=== PATIENT | female | born 1965 | race American Indian/Alaskan Native ===

== ENCOUNTER 2018-11-24 20:11 | Emergency (ER) | payer OTHER ==
[2018-11-24 21:29] VITALS: BP 188/97
--- NOTE | 2018-11-24 21:44 | Emergency Department Report ---
Blank Doc - Documentation Documentation: This is a 53-year-old female that presents with right sided ear pain with radi ation to head causes headache. Denies worst headache or thunderclap headache. This initial assessment/diagnostic orders/clinical plan/treatment(s) is/are subject to change based on patient's health status, clinical progression and re- assessment by fellow clinical providers in the ED. Further treatment and workup at subsequent clinical providers discretion. Patient/guardians urged not to elope from the ED as their condition may be serious if not clinically assessed and managed. Initial orders include: 1- Patient sent to [facility] for further evaluation and treatment
--- NOTE | 2018-11-25 03:32 | Emergency Department Report ---
- General Chief Complaint: Headache Stated Complaint: HEADACHE/EARACHE/BODYACHE Time Seen by Provider: 11/24/18 21:42 Source: patient Mode of arrival: Ambulatory Limitations: No Limitations - History of Present Illness Initial Comments: 53-year-old [place] female to emergency Department complaining of a a a couple day history of cough, congestion, nasal pressure, ringing in the ear is sinus pressure and mild coryza that has been nonprogression since the onset. She reports no fever, no vomiting, no diarrhea, no hemoptysis, no hematemesis, no hematochezia does have occasional wheezing. MD Complaint: rhinorrhea, nasal congestion -: Gradual Severity: mild Severity scale (0 -10): 0 Quality: dull Consistency: constant Improves With: nothing Worsens With: nothing Context: sick contacts Associated Symptoms: rhinorrhea, nasal congestion, cough. denies: chills, myalgias, diaphoresis, headache, stiff neck, chest pain, shortness of breath, abdominal pain, vomiting, diarrhea, right sweats, weight loss, epistaxis - Related Data Previous Rx's Medication Instructions Recorded Last Taken Type ALBUTEROL Inhaler (OR & NICU) 2 puff IH QID PRN #1 inhalation 11/25/18 Unknown Rx [ProAir HFA Inhaler] guaiFENesin/CODEINE [Robitussin AC] 5 ml PO Q6H PRN #120 ml 11/25/18 Unknown Rx predniSONE [Deltasone] 20 mg PO QDAY #5 tab 11/25/18 Unknown Rx Allergies Allergy/AdvReac Type Severity Reaction Status Date / Time pollen extracts Allergy Unknown Verified 11/24/18 20:15 ED Review of Systems ROS: Stated complaint: HEADACHE/EARACHE/BODYACHE Other details as noted in HPI Constitutional: denies: chills, fever Eyes: denies: eye pain, eye discharge, vision change ENT: denies: ear pain, throat pain Respiratory: denies: cough, shortness of breath, wheezing Cardiovascular: denies: chest pain, palpitations Endocrine: no symptoms reported Gastrointestinal: denies: abdominal pain, nausea, diarrhea Genitourinary: denies: urgency, dysuria, discharge Musculoskeletal: denies: back pain, joint swelling, arthralgia Skin: denies: rash, lesions Neurological: denies: headache, weakness, paresthesias Psychiatric: denies: anxiety, depression Hematological/Lymphatic: denies: easy bleeding, easy bruising ED Past Medical Hx - Past Medical History Previous Medical History?: No - Surgical History Past Surgical History?: No - Social History Smoking Status: Never Smoker Substance Use Type: Alcohol - Medications Home Medications: Home Medications Medication Instructions Recorded Confirmed Last Taken Type ALBUTEROL Inhaler (OR & NICU) 2 puff IH QID PRN #1 inhalation 11/25/18 Unknown Rx [ProAir HFA Inhaler] guaiFENesin/CODEINE [Robitussin AC] 5 ml PO Q6H PRN #120 ml 11/25/18 Unknown Rx predniSONE [Deltasone] 20 mg PO QDAY #5 tab 11/25/18 Unknown Rx ED Physical Exam - General Limitations: No Limitations General appearance: alert, in no apparent distress - Head Head exam: Present: atraumatic, normocephalic - Eye Eye exam: Present: normal appearance - ENT ENT exam: Present: mucous membranes moist, other (nasal congestion bilaterally. Nose with some injected. Nasal mucosa injected posterior pharynx. A small effusion on the right tympanic membrane, but no redness no discharge.) - Neck Neck exam: Present: normal inspection, full ROM. Absent: tenderness, meningismus, lymphadenopathy - Respiratory Respiratory exam: Present: normal lung sounds bilaterally. Absent: respiratory distress, wheezes, rales, rhonchi, chest wall tenderness, accessory muscle use - Cardiovascular Cardiovascular Exam: Present: regular rate, normal rhythm. Absent: systolic murmur, diastolic murmur, rubs, gallop - GI/Abdominal GI/Abdominal exam: Present: soft, normal bowel sounds - Extremities Exam Extremities exam: Present: normal inspection - Back Exam Back exam: Present: normal inspection - Neurological Exam Neurological exam: Present: alert, oriented X3 - Psychiatric Psychiatric exam: Present: normal affect, normal mood - Skin Skin exam: Present: warm, dry, intact, normal color. Absent: rash ED Course Vital Signs 11/24/18 11/24/18 21:26 21:42 Temperature 98.7 F 98.7 F Pulse Rate 79 81 Respiratory 18 18 Rate Blood Pressure 188/97 188/97 O2 Sat by Pulse 100 100 Oximetry Critical care attestation.: If time is entered above; I have spent that time in minutes in the direct care of this critically ill patient, excluding procedure time. ED Disposition Clinical Impression: Congestion of nasal sinus, URI (upper respiratory infection), Cough Disposition: DC-01 TO HOME OR SELFCARE Is pt being admited?: No Does the pt Need Aspirin: No Condition: Stable Instructions: Upper Respiratory Infection (ED), Cold Symptoms (ED) Prescriptions: predniSONE [Deltasone] 20 mg PO QDAY #5 tab ALBUTEROL Inhaler (OR & NICU) [ProAir HFA Inhaler] 2 puff IH QID PRN #1 inhalation PRN Reason: Shortness Of Breath guaiFENesin/CODEINE [Robitussin AC] 5 ml PO Q6H PRN #120 ml PRN Reason: Cough [facility] [Primary Care Provider] - 3-5 Days
== END 2018-11-25 03:37 | disposition home or self-care (01) ==
LOC: ED 20:11
DX: J06.9 Acute upper respiratory infection, unspecified (principal); Z91.048 Other nonmedicinal substance allergy status
CPT/HCPCS: 99282

== ENCOUNTER 2019-07-20 13:58 | Emergency (ER) | payer SELFPAY ==
[2019-07-20 14:37] VITALS: BP 170/85
--- NOTE | 2019-07-20 14:39 | Event Note ---
ED Screening Note ED Screening Note: cough that began two days mucus production +congestion taking mucinex with some relief states that she had a fever two days ago +sick contacts PMHx thyroid goiter, HTN no allergies to meds non smoker LNMP: 07/16/19 This initial assessment/diagnostic orders/clinical plan/treatment(s) is/are s ubject to change based on patients health status, clinical progression and re- assessment by fellow clinical providers in the ED. Further treatment and workup at subsequent clinical providers discretion. Patient/guardian urged not to elope from the ED as their condition may be serious if not clinically assessed and managed. Initial orders include: CXR
--- NOTE | 2019-07-20 15:30 | XRay Report ---
CHEST 2 VIEWS INDICATION: cough. COMPARISON: None. FINDINGS: Support devices: None. Heart: Within normal limits. Pulmonary vasculature: Normal. Lungs/pleura: No acute air space or interstitial disease. No pneumothorax. Additional findings: None. IMPRESSION: Normal chest. Signer Name: Tejinder Snyder MD Signed: 07/20/2019 3:26 PM Workstation Name: [id number]
--- NOTE | 2019-07-20 15:44 | Emergency Department Report ---
- General Chief Complaint: Upper Respiratory Infection Stated Complaint: CHEST CONGESTED/COUGH Time Seen by Provider: 07/20/19 14:36 Source: patient Mode of arrival: Ambulatory Limitations: No Limitations - History of Present Illness Initial Comments: Patient is 53 years old female with no significant past medical history. Patient presented to the ER complaining of cough, productive was greenish sputum for the last 5 days. Patient denied any fever or chills. No nausea or vomiting. Patient also denied any chest pain or shortness of breath. MD Complaint: cough -: days(s) (5) Severity: moderate - Related Data Previous Rx's Medication Instructions Recorded Last Taken Type ALBUTEROL Inhaler (OR & NICU) 2 puff IH QID PRN #1 inhalation 11/25/18 Unknown Rx [ProAir HFA Inhaler] guaiFENesin/CODEINE [Robitussin AC] 5 ml PO Q6H PRN #120 ml 11/25/18 Unknown Rx predniSONE [Deltasone] 20 mg PO QDAY #5 tab 11/25/18 Unknown Rx Allergies Allergy/AdvReac Type Severity Reaction Status Date / Time pollen extracts Allergy Unknown Verified 07/20/19 14:39 ED Review of Systems ROS: Stated complaint: CHEST CONGESTED/COUGH Other details as noted in HPI Comment: All other systems reviewed and negative Constitutional: denies: chills, fever ENT: throat pain Respiratory: cough. denies: shortness of breath, SOB with exertion, wheezing Cardiovascular: denies: chest pain, palpitations Gastrointestinal: denies: abdominal pain, nausea, vomiting Musculoskeletal: denies: back pain Neurological: denies: headache, weakness, numbness, paresthesias, confusion, abnormal gait ED Past Medical Hx - Past Medical History Previous Medical History?: No - Surgical History Past Surgical History?: No - Social History Smoking Status: Never Smoker Substance Use Type: Alcohol - Medications Home Medications: Home Medications Medication Instructions Recorded Confirmed Last Taken Type ALBUTEROL Inhaler (OR & NICU) 2 puff IH QID PRN #1 inhalation 11/25/18 Unknown Rx [ProAir HFA Inhaler] guaiFENesin/CODEINE [Robitussin AC] 5 ml PO Q6H PRN #120 ml 11/25/18 Unknown Rx predniSONE [Deltasone] 20 mg PO QDAY #5 tab 11/25/18 Unknown Rx ED Physical Exam - General Limitations: No Limitations General appearance: alert, in no apparent distress - Head Head exam: Present: atraumatic, normocephalic, normal inspection - Eye Eye exam: Present: normal appearance - ENT ENT exam: Present: normal exam, normal orophraynx, mucous membranes moist - Neck Neck exam: Present: normal inspection, full ROM. Absent: tenderness, meningismus, lymphadenopathy, thyromegaly - Respiratory Respiratory exam: Present: normal lung sounds bilaterally - Cardiovascular Cardiovascular Exam: Present: regular rate, normal rhythm, normal heart sounds - GI/Abdominal GI/Abdominal exam: Present: soft, normal bowel sounds. Absent: distended, tenderness, guarding, rebound, rigid, organomegaly, mass, bruit, pulsatile mass, hernia - Extremities Exam Extremities exam: Present: normal inspection, full ROM, normal capillary refill. Absent: pedal edema, calf tenderness - Back Exam Back exam: Present: normal inspection, full ROM. Absent: CVA tenderness (R), CVA tenderness (L) - Neurological Exam Neurological exam: Present: alert, oriented X3, CN II-XII intact - Psychiatric Psychiatric exam: Present: normal mood - Skin Skin exam: Present: warm, intact, normal color ED Course Vital Signs 07/20/19 07/20/19 14:03 14:37 Temperature 97.8 F Pulse Rate 92 H Respiratory 18 Rate Blood Pressure 170/85 O2 Sat by Pulse 98 Oximetry ED Medical Decision Making - Radiology Data Radiology results: image reviewed interpreted by me: Chest x-ray is unremarkable. Critical care attestation.: If time is entered above; I have spent that time in minutes in the direct care of this critically ill patient, excluding procedure time. ED Disposition Clinical Impression: Acute bronchitis Disposition: DC-01 TO HOME OR SELFCARE Is pt being admited?: No Condition: Stable Instructions: Acute Bronchitis (ED) Referrals: [facility] [Provider Group] - 3-5 Days Forms: Work/School Release Form(ED)
== END 2019-07-20 15:50 | disposition home or self-care (01) ==
LOC: ED 13:58
DX: J40 Bronchitis, not specified as acute or chronic (principal); Z91.048 Other nonmedicinal substance allergy status
CPT/HCPCS: 71046

== ENCOUNTER 2019-10-01 14:32 | Observation (INO) | payer SELFPAY ==
--- NOTE | 2019-10-01 16:29 | Emergency Department Report ---
Chief Complaint: Vaginal Bleeding Stated Complaint: BLEEDING,CRAMPING - HPI History of Present Illness: 53 yo AA F with abnormal vaginal bleeding. Finished last menstrual cycle last Saturday. She had some heavy bleeding with clots on Saturday. Mild spotting for the past two days, until today. Today the patient has had heavy bleeding with large clots. Pelvic cramping. Mild lightheadedness. No other pmhx. No OBGYN. - Exam Vital Signs: Vital Signs 10/01/19 14:38 Temperature 99.1 F Pulse Rate 98 H Respiratory 18 Rate Blood Pressure 167/85 O2 Sat by Pulse 100 Oximetry Physical Exam: Ambulatory into triage. Awake alert and oriented. No acute distress. MSE screening note: Focused history and physical exam performed. Due to findings the following was ordered: CBC, BMP, Preg, PT/INR, U/A To fast track Patient discussed with doctor:: DAIN NAVA ED Disposition for MSE Condition: Stable
[2019-10-01 16:55] LABS: INR 0.97 (0.87-1.13)
[2019-10-01 16:56] LABS: Partial Thromboplastin Time 25.9 Sec. (24.2-36.6)
[2019-10-01 16:57] LABS: Hematocrit 23.2 % (30.3-42.9); Hemoglobin 6.8 gm/dl (10.1-14.3); Mean Corpuscular HGB Conc 29 % (30-34); Platelet Count 391 K/mm3 (140-440); Red Blood Count 3.42 M/mm3 (3.65-5.03)
[2019-10-01 17:01] LABS: BUN/Creatinine Ratio 12; Blood Urea Nitrogen 7 mg/dL (7-17); Calcium 8.9 mg/dL (8.4-10.2); Hemolysis Index 3
[2019-10-01 17:02] LABS: Mean Corpuscular Volume 68 fl (79-97); Red Cell Distribution Width 21.4 % (13.2-15.2)
[2019-10-01] MEDS ORDERED: SODIUM CHLORIDE 0.9% 1000 ML 1,000 ML IV ONE (17:19)
[2019-10-01 18:10] LABS: Bacteria,Urine 1+ /HPF (Negative); Bilirubin,Urine NEG (Negative); Blood,Urine LG (Negative); Color,Urine Straw (Yellow); Mucus,Urine FEW /HPF; Protein,Urine <15 mg/dL mg/dL (Negative); Urobilinogen,Urine < 2.0 mg/dL (<2.0)
--- NOTE | 2019-10-01 18:38 | Emergency Department Report ---
ED Female HPI - General Chief complaint: Vaginal Bleeding Stated complaint: BLEEDING,CRAMPING Time Seen by Provider: 10/01/19 16:46 Source: patient Mode of arrival: Ambulatory Limitations: No Limitations - History of Present Illness Initial comments: This is a 53-year-old female nontoxic, well nourished in appearance, no acute signs of distress presents to the ED with c/o of vaginal bleeding, dizziness, and pelvic pain x2 days. Patient stated she goes about 3 pads an hour. Patient denies any vaginal discharge or foul odor. Patient denies any nausea, vomiting, chest pain, shortness of breathe, fever, chills, headache, stiff neck, numbness, tingling. Patient denies any urinary symptoms. Patient denies any allergies or significant PMH. MD Complaint: vaginal bleeding, pelvic pain -: days(s) (2) Severity: mild Severity scale (0 -10): 3 Quality: cramping Consistency: constant Improves with: none Worsens with: none Are you Now?: No Associated Symptoms: vaginal bleeding. denies: vaginal discharge, abdominal pain, nausea/vomiting, fever/chills, headaches, loss of appetite, dysuria, he maturia, rash, shortness of breath, syncope, weakness - Related Data Sexually active: No Previous Rx's Medication Instructions Recorded Last Taken Type Albuterol INH(or & Nicu Only) 2 puff IH QID PRN #1 inhalation 11/25/18 Unknown Rx [ProAir HFA Inhaler] guaiFENesin/CODEINE [Robitussin AC] 5 ml PO Q6H PRN #120 ml 11/25/18 Unknown Rx predniSONE [Deltasone] 20 mg PO QDAY #5 tab 11/25/18 Unknown Rx Amoxicillin [Amoxicillin TAB] 875 mg PO BID #14 tablet 07/20/19 Unknown Rx guaiFENesin/CODEINE [Robitussin AC] 10 ml PO TID PRN #100 ml 07/20/19 Unknown Rx Allergies Allergy/AdvReac Type Severity Reaction Status Date / Time pollen extracts Allergy Unknown Verified 10/01/19 16:26 ED Review of Systems ROS: Stated complaint: BLEEDING,CRAMPING Other details as noted in HPI Constitutional: denies: chills, fever Eyes: denies: eye pain, eye discharge, vision change ENT: denies: ear pain, throat pain Respiratory: denies: cough, shortness of breath, wheezing Cardiovascular: denies: chest pain, palpitations Endocrine: no symptoms reported Gastrointestinal: denies: abdominal pain, nausea, diarrhea Genitourinary: abnormal menses. denies: urgency, dysuria, discharge Musculoskeletal: denies: back pain, joint swelling, arthralgia Skin: denies: rash, lesions Neurological: denies: headache, weakness, paresthesias Psychiatric: denies: anxiety, depression Hematological/Lymphatic: denies: easy bleeding, easy bruising ED Past Medical Hx - Past Medical History Previous Medical History?: No - Surgical History Past Surgical History?: No - Social History Smoking Status: Never Smoker Substance Use Type: None - Medications Home Medications: Home Medications Medication Instructions Recorded Confirmed Last Taken Type Albuterol INH(or & Nicu Only) 2 puff IH QID PRN #1 inhalation 11/25/18 Unknown Rx [ProAir HFA Inhaler] guaiFENesin/CODEINE [Robitussin AC] 5 ml PO Q6H PRN #120 ml 11/25/18 Unknown Rx predniSONE [Deltasone] 20 mg PO QDAY #5 tab 11/25/18 Unknown Rx Amoxicillin [Amoxicillin TAB] 875 mg PO BID #14 tablet 07/20/19 Unknown Rx guaiFENesin/CODEINE [Robitussin AC] 10 ml PO TID PRN #100 ml 07/20/19 Unknown Rx ED Physical Exam - General Limitations: No Limitations General appearance: alert, in no apparent distress - Head Head exam: Present: atraumatic, normocephalic - Neck Neck exam: Present: normal inspection, full ROM. Absent: tenderness, meningismus, lymphadenopathy - Respiratory Respiratory exam: Present: normal lung sounds bilaterally. Absent: respiratory distress - Cardiovascular Cardiovascular Exam: Present: regular rate, normal rhythm, tachycardia, normal heart sounds. Absent: irregular rhythm, systolic murmur, diastolic murmur, rubs, gallop - GI/Abdominal GI/Abdominal exam: Present: soft, normal bowel sounds. 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 Absent: cervical motion tendernes, adnexal tenderness, adnexal mass, uterine enlargement, uterine tenderness - Extremities Exam Extremities exam: Present: normal inspection, full ROM - Back Exam Back exam: Present: normal inspection, full ROM. Absent: tenderness, CVA tenderness (R), CVA tenderness (L), muscle spasm, paraspinal tenderness, vertebral tenderness, rash noted - Neurological Exam Neurological exam: Present: alert, oriented X3, normal gait - Psychiatric Psychiatric exam: Present: normal affect, normal mood - Skin Skin exam: Present: warm, dry, intact, normal color. Absent: rash ED Course Vital Signs 10/01/19 10/01/19 10/01/19 14:38 19:09 19:50 Temperature 99.1 F 98.6 F 98.5 F Pulse Rate 98 H 112 H 86 Respiratory 18 20 16 Rate Blood Pressure 167/85 Blood Pressure 168/83 149/79 [Right] O2 Sat by Pulse 100 98 99 Oximetry - Reevaluation(s) Reevaluation #1: 10/01/19 18:37 Patient is speaking in full sentences with no signs of distress noted. - Consultations Consultation #1: 10/01/19 19:13 Patient has been consulted with Dr. Amaya about patient history, physical exam, and labs and agrees to the ED plan of care and admission. Consultation #2: 10/01/19 19:[address] Gallo (MYOBGYN) and accepts patient to services. ED Medical Decision Making - Lab Data Result diagrams: 10/01/19 16:32 10/01/19 16:32 - Medical Decision Making This is a 53-year-old female that dysmenorrhea. Patient was consulted with Dr. Amaya and admitted by Dr. Gallo. 2 units RBCs provided. Labs obtained. UA obtained. US pelvic and transvaginal otained. PAtient agrees to admission. No questions noted by the patient. At the time of admission, patient is stable. Critical care attestation.: If time is entered above; I have spent that time in minutes in the direct care of this critically ill patient, excluding procedure time. ED Disposition Clinical Impression: Dysmenorrhea, Low hemoglobin and low hematocrit Anemia Qualifiers: Anemia type: unspecified type Qualified Code(s): D64.9 - Anemia, unspecified Disposition: OP ADMIT IP TO THIS HOSP Is pt being admited?: Yes Condition: Stable
[2019-10-01] MEDS ORDERED: SODIUM CHLORIDE 0.9% 500 ML 500 ML IV ONE (18:59)
--- NOTE | 2019-10-01 19:11 | Ultrasound Report ---
US pelvic complete INDICATION / CLINICAL INFORMATION: vaginal bleeding. COMPARISON: None available. FINDINGS: Large (almost 7 cm) fibroid is demonstrated in the posterior uterine fundus. Small amount of fluid is demonstrated in the endometrial canal in the fundus, with very mild dilatation (1.1 cm in diameter) of the endometrial canal. Both ovaries are unremarkable. No free fluid. IMPRESSION: 1. 7 cm fundal fibroid. 2. Small amount of free fluid in the endometrial canal. 3. Normal ovaries. Signer Name: Rahul Jara MD Signed: 10/01/2019 7:06 PM Workstation Name: [id number]
[2019-10-01 19:15] LABS: Total Cells Counted 100
[2019-10-01 19:16] LABS: Macrocytosis 1+
[2019-10-01 19:18] LABS: Hypochromasia 1+; Target Cells Rare
[2019-10-01 19:19] LABS: Large Platelets 1+; Platelet Estimate Consistent w Auto; Tear Drop Cells Rare
[2019-10-01] MEDS ORDERED: MORPHINE 4 MG/1 ML INJ IV ONE (19:53)
[2019-10-01] MEDS ORDERED: ONDANSETRON 4 MG/2 ML INJ IV ONE (19:53)
[2019-10-01] MEDS ORDERED: oxyCODONE /ACETAMINOPHEN 5-325MG TAB PO PRN (20:09)
[2019-10-01] MEDS ORDERED: ALUM-MAG HYDROXIDE-SIMETHICONE 200-200-20MG/5ML ORAL LIQD 30 ML PO PRN (20:09)
[2019-10-01] MEDS ORDERED: MAGNESIUM HYDROXIDE (MOM) ORAL LIQD UDC PO PRN (20:09)
[2019-10-01] MEDS ORDERED: IBUPROFEN 600 MG TAB PO PRN (20:09)
[2019-10-01] MEDS ORDERED: SODIUM CHLORIDE 0.9% 1000 ML 1,000 ML IV SCH (20:15)
[2019-10-01] MEDS ORDERED: IBUPROFEN 800 MG TAB PO PRN (20:28)
[2019-10-01] MEDS ORDERED: ESTROGENS, CONJUGATED 25 MG INJ IV ONE (20:30)
[2019-10-01] MEDS ORDERED: DOCUSATE SODIUM 100 MG CAP PO SCH (22:00)
[2019-10-02 08:28] LABS: Hematocrit 27.3 % (30.3-42.9); Hemoglobin 8.3 gm/dl (10.1-14.3)
--- NOTE | 2019-10-02 09:41 | Short Stay Summary ---
Short Stay Documentation Date of service: 10/02/19 Narrative H&P: This is a 53-year-old black female para [id number] presented to the emergency room with complaints of worsening menstrual cycles increasing passing clots and dysmenorrhea. Patient states that her menstrual cycles have been getting worse over the past year but this time she had larger clots than usual and weakness. Workup in the emergency room revealed moderate amount of vaginal bleeding she had a hematocrit of 23.2 with hemoglobin of 6.8 and pelvic ultr asound revealed a 7 cm leiomyoma. 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 Denies any abnormal Pap smear with the last Pap smear 2013 Patient with history of chlamydia years ago Menarche age 15 regular menses every 28-30 days normal duration 4 days but now has increased to approximately 7 day Patient currently on no contraceptives OB HX 3 full-term vaginal deliveries and one ectopic treated by medications - History Past Medical History: other (anxiety and goiter) Past Surgical History: No surgical history - Allergies and Medications Current Medications: Allergies pollen extracts Allergy (Verified 10/01/19 16:26) Unknown Home Medications Medication Instructions Recorded Confirmed Last Taken Type Albuterol INH(or & Nicu Only) 2 puff IH QID PRN #1 inhalation 11/25/18 Unknown Rx [ProAir HFA Inhaler] guaiFENesin/CODEINE [Robitussin AC] 5 ml PO Q6H PRN #120 ml 11/25/18 Unknown Rx predniSONE [Deltasone] 20 mg PO QDAY #5 tab 11/25/18 Unknown Rx Amoxicillin [Amoxicillin TAB] 875 mg PO BID #14 tablet 07/20/19 Unknown Rx guaiFENesin/CODEINE [Robitussin AC] 10 ml PO TID PRN #100 ml 07/20/19 Unknown Rx Ferrous Sulfate [Feosol 325 MG tab] 325 mg PO BID #60 tablet 10/02/19 Unknown Rx Ibuprofen [Motrin 800 MG tab] 800 mg PO Q6H PRN #30 tablet 10/02/19 Unknown Rx Active Medications Al Hydrox/Mg Hydrox/Simethicone (Alum-Mag Hydrox-Simeth [phone]/5ml) 30 ml PO Q4H PRN PRN Reason: Indigestion Docusate Sodium (Colace) 100 mg PO BID ARAM Last Admin: 10/01/19 23:52 Dose: 100 mg Documented by: Sodium Chloride (Nacl 0.9% 1000 Ml) 1,000 mls @ 100 mls/hr IV DIRECT ARAM Last Admin: 10/01/19 23:52 Dose: 100 mls/hr Documented by: Ibuprofen (Ibuprofen) 800 mg PO Q6H PRN PRN Reason: Pain, Mild (1-3) Last Admin: 10/02/19 05:59 Dose: 800 mg Documented by: Magnesium Hydroxide (Milk Of Magnesia) 30 ml PO Q4H PRN PRN Reason: Constipation Oxycodone/Acetaminophen (Percocet 5/325) 1 tab PO Q6H PRN PRN Reason: Pain, Moderate (4-6) Sodium Chloride (Sodium Chloride Flush Syringe 10 Ml) 10 ml IV BID ARAM Sodium Chloride (Sodium Chloride Flush Syringe 10 Ml) 10 ml IV PRN PRN PRN Reason: LINE FLUSH - Physical exam General appearance: no acute distress HEENT: Atraumatic Lungs: Normal air movement Breasts: deferred Heart: Regular rate Gastrointestinal: normal, no tenderness, no distended, no guarding, obese Female Genitourinary: deferred (done in the emergency room) Rectal Exam: deferred Extremities: no ischemia, No edema Neurological: Normal speech - Hospital course Hospital course: Patient was admitted and received IV Premarin and 2 units of packed red blood cells. Patient bleeding decreased significantly and her hematocrit raised to 27.3% with a hemoglobin of 8.3. Discussed with the patient the diagnosis of leiomyomata. Discussed the benign nature of this tumor but also discussed that this probably etiology of her changing menstrual cycles. Discussed some treatment of expectant management with possibility of menopause, soon and surgical treatments including hysterectomy. Stress to the patient the importance of outpatient follow-up for Pap smear and mammogram and discussion of further treatment of her leiomyoma - Disposition Condition at discharge: Good Disposition: DC-01 TO HOME OR SELFCARE - Discharge Diagnoses (1) Intramural leiomyoma of uterus Status: Acute (2) Anemia Status: Acute Qualifiers: Anemia type: unspecified type Qualified Code(s): D64.9 - Anemia, unspecified (3) Dysmenorrhea Status: Acute (4) Low hemoglobin and low hematocrit Status: Acute (5) Anxiety Status: Chronic (6) Goiter Status: Chronic Short Stay Discharge Plan Activity: no restrictions Diet: regular Additional Instructions: She was given my office information. Stress the importance of outpatient follow- up for her condition Follow up with: PRIMARY CARE, [Primary Care Provider] - 7 Days Prescriptions: Ferrous Sulfate [Feosol 325 MG tab] 325 mg PO BID #60 tablet Ibuprofen [Motrin 800 MG tab] 800 mg PO Q6H PRN #30 tablet PRN Reason: Pain
[2019-10-02 09:51] VITALS: BP 139/73
== END 2019-10-02 11:00 | disposition home or self-care (01) ==
LOC: ED 14:32 → OB 20:09
PROVIDERS: ADMIT Obstetrics & Gynecology; ATTEND Obstetrics & Gynecology
DX: D64.9 Anemia, unspecified (principal); D25.1 Intramural leiomyoma of uterus; N94.6 Dysmenorrhea, unspecified; N93.9 Abnormal uterine and vaginal bleeding, unspecified; F41.9 Anxiety disorder, unspecified; E04.9 Nontoxic goiter, unspecified
CPT/HCPCS: 36415; 36430; 76856; 80048; 81001; 84703; 85007; 85014; 85018; 85025; 85610; 85730; 86850; 86900; 86901; 86920; 96374; 96375; 99284; G0378; J1410; J2270; J2405; J7030; P9016

== ENCOUNTER 2020-12-07 21:11 | Emergency (ER) | payer SELFPAY ==
--- NOTE | 2020-12-07 23:33 | XRay Report ---
CHEST PA AND LATERAL VIEWS INDICATION: chest pain. COMPARISON: 07/20/2019 FINDINGS: Support devices: None. Heart: Within normal limits. Lungs/Pleura: No acute pulmonary or pleural findings. Displacement of the upper trachea to the left i s again noted, unchanged. This may be due to enlarged thyroid. IMPRESSION: 1. No acute findings. 2. Displaced of the upper trachea to the left may be due to enlarged right thyroid lobe but is nonspe cific. This is stable since 2019. Signer Name: Olvin John MD Signed: 12/07/2020 11:29 PM Workstation Name: [id number]
[2020-12-07 23:56] LABS: Basophils # (Auto) 0.1 K/mm3 (0.0-0.1); Basophils % (Auto) 1.1 % (0.0-1.8); Eosinophils # (Auto) 0.2 K/mm3 (0.0-0.4); Hematocrit 35.9 % (30.3-42.9); Hemoglobin 11.6 gm/dl (10.1-14.3); Lymphocytes # (Auto) 1.8 K/mm3 (1.2-5.4); Lymphocytes % (Auto) 26.7 % (13.4-35.0); Mean Corpuscular HGB Conc 32 % (30-34); Mean Corpuscular Volume 81 fl (79-97); Monocytes # (Auto) 0.6 K/mm3 (0.0-0.8); Monocytes % (Auto) 8.3 % (0.0-7.3); Platelet Count 269 K/mm3 (140-440); Red Blood Count 4.45 M/mm3 (3.65-5.03)
[2020-12-07 23:57] LABS: Alanine Aminotransferase 11 units/L (7-56); Albumin 4.7 g/dL (3.9-5); BUN/Creatinine Ratio 14; Blood Urea Nitrogen 15 mg/dL (7-17); Calcium 9.4 mg/dL (8.4-10.2); Hemolysis Index 6
[2020-12-07 23:58] LABS: Red Cell Distribution Width 20.9 % (13.2-15.2)
[2020-12-08] MEDS ORDERED: cloNIDine 0.1 MG TAB PO ONE (03:38)
--- NOTE | 2020-12-08 03:43 | Emergency Department Report ---
ED Chest Pain HPI - General Chief Complaint: Chest Pain Stated Complaint: CHEST PAIN Time Seen by Provider: 12/08/20 03:33 Source: patient Mode of arrival: Ambulatory Limitations: No Limitations - History of Present Illness Initial Comments: Patient is 55 years old female with history of goiter and hypertension. Patient stated that she was on some medication for blood pressure but not recently. Patient presented to the ER complaining of left-sided chest pain that started last night. Patient described her pain as sharp, intermittent with no radiat ion. Patient denied any shortness of breath. No fever or chills. Patient found to have a blood pressure of 198/102. MD Complaint: chest pain -: Last night Onset: during rest Pain Location: left chest Pain Radiation: none Severity scale (0 -10): 4 Quality: sharp Consistency: now resolved - Related Data Previous Rx's Medication Instructions Recorded Last Taken Type Albuterol Mdi (or & Nicu Only) 2 puff IH QID PRN #1 inhalation 11/25/18 Unknown Rx [ProAir HFA Inhaler] guaiFENesin/CODEINE [Robitussin AC] 5 ml PO Q6H PRN #120 ml 11/25/18 Unknown Rx predniSONE [Deltasone] 20 mg PO QDAY #5 tab 11/25/18 Unknown Rx Amoxicillin [Amoxicillin TAB] 875 mg PO BID #14 tablet 07/20/19 Unknown Rx guaiFENesin/CODEINE [Robitussin AC] 10 ml PO TID PRN #100 ml 07/20/19 Unknown Rx Ferrous Sulfate [Feosol 325 MG tab] 325 mg PO BID #60 tablet 10/02/19 Unknown Rx Ibuprofen [Motrin 800 MG tab] 800 mg PO Q6H PRN #30 tablet 10/02/19 Unknown Rx Allergies Allergy/AdvReac Type Severity Reaction Status Date / Time pollen extracts Allergy Unknown Verified 10/01/19 16:26 Heart Score - HEART Score History: Slightly suspicious EKG: Non-specific Age: 45-65 Risk factors: 1-2 risk factors Troponin: < normal limit HEART Score: 3 - Critical Actions Critical Actions: 0-3 pts:0.9-1.7%risk of adverse cardiac event.Candidate for discharge ED Review of Systems ROS: Stated complaint: CHEST PAIN Other details as noted in HPI Comment: All other systems reviewed and negative Constitutional: denies: chills, fever Respiratory: denies: cough, shortness of breath, SOB with exertion Cardiovascular: chest pain. denies: palpitations, dyspnea on exertion Gastrointestinal: denies: abdominal pain, nausea Musculoskeletal: denies: back pain Neurological: denies: headache, weakness, numbness, paresthesias, confusion, abnormal gait ED Past Medical Hx - Past Medical History Previous Medical History?: No Hx HIV: No - Surgical History Past Surgical History?: No - Social History Smoking Status: Never Smoker Substance Use Type: Alcohol - Medications Home Medications: Home Medications Medication Instructions Recorded Confirmed Last Taken Type Albuterol Mdi (or & Nicu Only) 2 puff IH QID PRN #1 inhalation 11/25/18 Unknown Rx [ProAir HFA Inhaler] guaiFENesin/CODEINE [Robitussin AC] 5 ml PO Q6H PRN #120 ml 11/25/18 Unknown Rx predniSONE [Deltasone] 20 mg PO QDAY #5 tab 11/25/18 Unknown Rx Amoxicillin [Amoxicillin TAB] 875 mg PO BID #14 tablet 07/20/19 Unknown Rx guaiFENesin/CODEINE [Robitussin AC] 10 ml PO TID PRN #100 ml 07/20/19 Unknown Rx Ferrous Sulfate [Feosol 325 MG tab] 325 mg PO BID #60 tablet 10/02/19 Unknown Rx Ibuprofen [Motrin 800 MG tab] 800 mg PO Q6H PRN #30 tablet 10/02/19 Unknown Rx ED Physical Exam - General Limitations: No Limitations General appearance: alert, in no apparent distress - Head Head exam: Present: atraumatic, normocephalic, normal inspection - Eye Eye exam: Present: normal appearance, PERRL - ENT ENT exam: Present: normal exam, normal orophraynx, mucous membranes moist - Neck Neck exam: Present: normal inspection, full ROM. Absent: tenderness, meningismus - Respiratory Respiratory exam: Present: normal lung sounds bilaterally - Cardiovascular Cardiovascular Exam: Present: regular rate, normal rhythm, normal heart sounds - GI/Abdominal GI/Abdominal exam: Present: soft, normal bowel sounds. Absent: distended, tenderness, guarding, rebound, rigid, diminished bowel sounds, mass, bruit, pu lsatile mass, hernia - Extremities Exam Extremities exam: Present: normal inspection, full ROM, normal capillary refill. Absent: tenderness, pedal edema, joint swelling, calf tenderness - Back Exam Back exam: Present: normal inspection, full ROM. Absent: CVA tenderness (R), CVA tenderness (L) - Neurological Exam Neurological exam: Present: alert, oriented X3, CN II-XII intact - Psychiatric Psychiatric exam: Present: normal mood - Skin Skin exam: Present: warm, intact, normal color ED Course Vital Signs 12/07/20 12/08/20 12/08/20 23:06 02:56 04:18 Temperature 98.4 F Pulse Rate 90 87 88 Respiratory 18 16 Rate Blood Pressure 239/119 198/102 206/115 O2 Sat by Pulse 99 99 Oximetry ED Medical Decision Making - Lab Data Result diagrams: 12/07/20 23:19 12/07/20 23:19 - EKG Data -: EKG Interpreted by Wy EKG shows normal: sinus rhythm Rate: normal - EKG Data Interpretation: no acute changes - Radiology Data Radiology results: report reviewed - Medical Decision Making Patient is 55 years old female with history of goiter and hypertension. Patient stated that she was on some medication for blood pressure but not recently. Patient presented to the ER complaining of left-sided chest pain that started last night. Patient described her pain as sharp, intermittent with no radiation. Patient denied any shortness of breath. No fever or chills. Patient found to have a blood pressure of 198/102. EKG is unremarkable. Chest x-ray is negative for acute finding. Labs reviewed and is unremarkable including a negative troponin x2. Patient received clonidin e 0.2 mg and her blood pressures improved significantly. Patient stated that her chest pain is completely resolved now. Patient strongly advised to follow- up with her primary care physician for outpatient cardiac work-up and advised to return to the ER if she develop any new symptoms. Critical care attestation.: If time is entered above; I have spent that time in minutes in the direct care of this critically ill patient, excluding procedure time. ED Disposition Clinical Impression: Chest pain, Malignant hypertension Disposition: - TO HOME OR SELFCARE Is pt being admited?: No Condition: Stable Instructions: Nonspecific Chest Pain, Adult, Hypertension (ED), Hypertension, Adult Referrals: PRIMARY CARE, [Primary Care Provider] - 3-5 Days
[2020-12-08 07:11] VITALS: BP 173/93
--- NOTE | 2020-12-08 11:45 | Electrocardiograph Report ---
[facility] Test Date: 2020-12-07 Test Time: 23:12:04 Pat Name: ARAM MATOS Department: Room: Gender: F Concierge: ZANDER : 1965 Requested By: MIKHAIL FLORES Order Number: [id number] Reading MD: Brodie Elizondo Measurements Intervals [place] Rate: 98 P: 39 TN: 173 QRS: -7 QRSD: 69 T: 27 QT: 409 QTc: 523 Interpretive Statements Sinus rhythm Left ventricular hypertrophy Prolonged QT interval No previous ECG available for comparison Electronically Signed On 12-08-2020 11:44:48 EDT by Brodie Elizondo
--- NOTE | 2020-12-08 11:45 | Electrocardiograph Report ---
[facility] Test Date: 2020-12-08 Test Time: 03:00:48 Pat Name: ARAM MATOS Department: Room: Gender: F Director Broadcast: ZANDER : 1965 Requested By: MIKHAIL FLORES Order Number: [id number] Reading MD: Brodie Elizondo Measurements Intervals [place] Rate: 86 P: 43 [place]: 166 QRS: -14 QRSD: 70 T: 43 QT: 410 QTc: 490 Interpretive Statements Sinus rhythm Left ventricular hypertrophy No previous ECG available for comparison Electronically Signed On 12-08-2020 11:45:31 EDT by Brodie Elizondo
== END 2020-12-08 05:45 | disposition home or self-care (01) ==
LOC: ED 21:11
DX: R07.89 Other chest pain (principal); I10 Essential (primary) hypertension; Z79.899 Other long term (current) drug therapy; Z91.038 Other insect allergy status
CPT/HCPCS: 36415; 71046; 80053; 84484; 85025; 93005

== ENCOUNTER 2022-02-17 08:42 | Emergency (ER) | payer BC, OTHER ==
[2022-02-17 09:00] VITALS: BP 190/95
[2022-02-17] MEDS ORDERED: CYCLOBENZAPRINE 10 MG TAB PO ONE (10:37)
[2022-02-17] MEDS ORDERED: KETOROLAC 10 MG TAB PO ONE (10:37)
--- NOTE | 2022-02-17 11:15 | XRay Report ---
CHEST WITH LEFT RIBS 5 VIEWS 1050 INDICATION: fall, pain COMPARISON: Chest x-ray 07/20/2019 FINDINGS: Lung de leon clear. No pneumothorax. No mediastinal widening. No pleural effusion. Mild thoracolumbar scoliosis. No fractures seen. No rib lesions noted. Signer Name: James Croft MD Signed: 02/17/2022 11:10 AM Workstation Name: [id number]
--- NOTE | 2022-02-17 11:52 | Emergency Department Report ---
ED Back Pain/Injury HPI - General Chief Complaint: Back Pain/Injury Stated Complaint: BACK PAIN/LEFT EYE IS RED Time Seen by Provider: 02/17/22 10:37 Source: patient Limitations: No Limitations - History of Present Illness Initial Comments: 56-year-old black female with a past medical history of hypertension and a goiter presents to the emergency department for left lower rib pain. She states that she fell 2 days ago and has been having left rib pain since then. She denies loss of consciousness, shortness of breath, fever, chest pain. She states pain is 6 out of 10, worse with movement, and she has not taken any medication for the pain. MD Complaint: back pain, fall -: Sudden, days(s) (4) Similar Symptoms Previously: No Place: home Radiation: flank (Left rib area) Severity: moderate Severity scale (0 -10): 6 Quality: aching Consistency: constant Worsens With: movement, deep breaths/cough Context: fall Associated Symptoms: denies: confusion, weakness, chest pain, numbness, difficulty walking, cough, difficulty urinating, diaphoresis, incontinence, fever/chills, constipation, headaches, abdominal pain, loss of appetite, malaise, nausea/vomiting, rash, seizure, shortness of breath, syncope - Related Data Previous Rx's Medication Instructions Recorded Last Taken Type Albuterol Mdi (or & Nicu Only) 2 puff IH QID PRN #1 inhalation 11/25/18 Unknown Rx [ProAir HFA Inhaler] guaiFENesin/CODEINE [Robitussin AC] 5 ml PO Q6H PRN #120 ml 11/25/18 Unknown Rx predniSONE [Deltasone] 20 mg PO QDAY #5 tab 11/25/18 Unknown Rx Amoxicillin [Amoxicillin TAB] 875 mg PO BID #14 tablet 07/20/19 Unknown Rx guaiFENesin/CODEINE [Robitussin AC] 10 ml PO TID PRN #100 ml 07/20/19 Unknown Rx Ferrous Sulfate [Feosol 325 MG tab] 325 mg PO BID #60 tablet 10/02/19 Unknown Rx Ibuprofen [Motrin 800 MG tab] 800 mg PO Q6H PRN #30 tablet 10/02/19 Unknown Rx amLODIPine [Norvasc] 5 mg PO DAILY #30 tab 12/08/20 Unknown Rx hydroCHLOROthiazide [HCTZ] 25 mg PO QDAY #30 tablet 12/08/20 Unknown Rx Cyclobenzaprine [Flexeril] 10 mg PO TID PRN #30 tab 02/17/22 Unknown Rx Naproxen [Naprosyn] 500 mg PO BID 7 Days #14 tab 02/17/22 Unknown Rx Olopatadine HCl [Pataday 0.2%] 1 drop OP QDAY #1 bottle 02/17/22 Unknown Rx Allergies Allergy/AdvReac Type Severity Reaction Status Date / Time pollen extracts Allergy Unknown Verified 02/17/22 08:51 ED Review of Systems ROS: Stated complaint: BACK PAIN/LEFT EYE IS RED Other details as noted in HPI Comment: All other systems reviewed and negative Constitutional: denies: chills, fever Eyes: denies: eye pain, vision change ENT: denies: congestion Respiratory: denies: orthopnea, shortness of breath, SOB with exertion, SOB at rest, stridor, wheezing Cardiovascular: denies: chest pain, palpitations Gastrointestinal: denies: abdominal pain, nausea, vomiting Genitourinary: denies: urgency, dysuria Musculoskeletal: back pain Skin: denies: rash, lesions Neurological: denies: headache, weakness ED Past Medical Hx - Past Medical History Hx HIV: No - Social History Smoking Status: Never Smoker Substance Use Type: Alcohol - Medications Home Medications: Home Medications Medication Instructions Recorded Confirmed Last Taken Type Albuterol Mdi (or & Nicu Only) 2 puff IH QID PRN #1 inhalation 11/25/18 Unknown Rx [ProAir HFA Inhaler] guaiFENesin/CODEINE [Robitussin AC] 5 ml PO Q6H PRN #120 ml 11/25/18 Unknown Rx predniSONE [Deltasone] 20 mg PO QDAY #5 tab 11/25/18 Unknown Rx Amoxicillin [Amoxicillin TAB] 875 mg PO BID #14 tablet 07/20/19 Unknown Rx guaiFENesin/CODEINE [Robitussin AC] 10 ml PO TID PRN #100 ml 07/20/19 Unknown Rx Ferrous Sulfate [Feosol 325 MG tab] 325 mg PO BID #60 tablet 10/02/19 Unknown Rx Ibuprofen [Motrin 800 MG tab] 800 mg PO Q6H PRN #30 tablet 10/02/19 Unknown Rx amLODIPine [Norvasc] 5 mg PO DAILY #30 tab 12/08/20 Unknown Rx hydroCHLOROthiazide [HCTZ] 25 mg PO QDAY #30 tablet 12/08/20 Unknown Rx Cyclobenzaprine [Flexeril] 10 mg PO TID PRN #30 tab 02/17/22 Unknown Rx Naproxen [Naprosyn] 500 mg PO BID 7 Days #14 tab 02/17/22 Unknown Rx Olopatadine HCl [Pataday 0.2%] 1 drop OP QDAY #1 bottle 02/17/22 Unknown Rx ED Physical Exam - General Limitations: No Limitations General appearance: alert, in no apparent distress - Head Head exam: Present: atraumatic, normocephalic - Eye Eye exam: Present: normal appearance. Absent: conjunctival injection - Neck Neck exam: Present: normal inspection, full ROM. Absent: tenderness, lymphadenopathy - Respiratory Respiratory exam: Present: normal lung sounds bilaterally. Absent: respiratory distress, wheezes, rales, rhonchi, stridor, chest wall tenderness - Cardiovascular Cardiovascular Exam: Present: regular rate, normal heart sounds - GI/Abdominal GI/Abdominal exam: Present: soft, normal bowel sounds. Absent: distended, tenderness, guarding, rebound, rigid - Extremities Exam Extremities exam: Present: normal inspection - Back Exam Back exam: Present: normal inspection, tenderness (Right upper). Absent: CVA tenderness (R), CVA tenderness (L), vertebral tenderness - Neurological Exam Neurological exam: Present: alert, oriented X3, normal gait - Psychiatric Psychiatric exam: Present: normal affect, normal mood - Skin Skin exam: Present: warm, dry, intact, normal color ED Course Vital Signs 02/17/22 08:48 Temperature 98.1 F Pulse Rate 78 Respiratory 18 Rate Blood Pressure 190/95 [Left] O2 Sat by Pulse 99 Oximetry ED Medical Decision Making - Radiology Data Radiology results: report reviewed, image reviewed Left rib x-ray with PA chest: FINDINGS: Lung de leon clear. No pneumothorax. No mediastinal widening. No pleural effusion. Mild thoracolumbar scoliosis. No fractures seen. No rib lesions noted. - Medical Decision Making 56-year-old black female with a past medical history of hypertension and a goiter presents to the emergency department for left lower rib pain. She states that she fell 2 days ago and has been having left rib pain since then. She denies loss of consciousness, shortness of breath, fever, chest pain. She states pain is 6 out of 10, worse with movement, and she has not taken any medication for the pain. Physical exam unremarkable. Rib x-ray with PA chest without any acute abnormalities noted. Pain improved after medication. Patient be discharged home with naproxen and Flexeril to use as needed for pain. She is advised to take medications as prescribed and follow-up with her primary care provider if no improvement or worsening symptoms or return to the emergency department for any concerning symptoms. She verbalizes understanding of and agreement with plan of care. Critical care attestation.: If time is entered above; I have spent that time in minutes in the direct care of this critically ill patient, excluding procedure time. ED Disposition Clinical Impression: Back pain Qualifiers: Back pain location: thoracic back pain Chronicity: acute Back pain laterality: left Qualified Code(s): M54.6 - Pain in thoracic spine Allergic conjunctivitis Qualifiers: Laterality: left Qualified Code(s): H10.12 - Acute atopic conjunctivitis, left eye Disposition: HOME / SELF CARE / HOMELESS Is pt being admited?: No Does the pt Need Aspirin: No Condition: Stable Instructions: Allergic Conjunctivitis, Adult, [id number], Acute Back Pain, Adult Additional Instructions: Take medications as prescribed. Follow-up with primary care provider if no imp rovement or worsening symptoms. Return to the emergency department as needed. Prescriptions: Cyclobenzaprine [Flexeril] 10 mg PO TID PRN #30 tab PRN Reason: Muscle Spasm Naproxen [Naprosyn] 500 mg PO BID 7 Days #14 tab Olopatadine HCl [Pataday 0.2%] 1 drop OP QDAY #1 bottle Referrals: HARIKA APODACA MD [Staff Physician] - 3-5 Days Time of Disposition: 11:52
== END 2022-02-17 12:19 | disposition home or self-care (01) ==
LOC: ED 08:42
DX: M54.9 Dorsalgia, unspecified (principal); H10.12 Acute atopic conjunctivitis, left eye; Z91.048 Other nonmedicinal substance allergy status
CPT/HCPCS: 99283